=== PATIENT | male | born 1975 | race Caucasian/White ===

== ENCOUNTER 2023-01-10 09:33 | Inpatient (IN) | payer OTHER ==
[2023-01-10] VITALS (7 sets, daily range): BP systolic 104–132; BP diastolic 69–100
[~2023-01-10] VITALS: Ht 162.6 cm; Wt 86.6 kg
--- NOTE | 2023-01-10 09:58 | NUR ---
MD HERNANDEZ AT BEDSIDE FOR EVALUATION
--- NOTE | 2023-01-10 10:05 | NUR ---
47YO MALE PT C/O PENILE PAIN , BLEEDING AND POSSIBLE FX xTODAY. REPORTS HITTING PENIS AGAINST OUTER LABIA DURING SEXUAL INTERCOURSE X8AM. STATES HEARING A "POP/CRACK" FOLLOWED BY BLEEDING. PRESENTS WITH PENILE SWELLING , -LOSS OF SENSATION OR NUMBING. NO ACTIVE BLEEDING AT THIS TIME. DENIES TAKING MEDICATION OR URINARY RETENTION. PT AAOX4, AMB W/ STEADY GAIT. HOB POSITIONED PER COMFORT. HX: DENIES NKA
--- NOTE | 2023-01-10 10:23 | NUR ---
pt swabbed for covid(slava). walked and handed to lab
[2023-01-10 10:29] LABS: BASOPHILS % (AUTO) 0.3 % (0.0-2.0); EOSINOPHILS # (AUTO) 0.1 K/uL (0-0.4); HEMATOCRIT 41.2 % (36-52); LYMPHOCYTES # (AUTO) 1.3 K/uL (2.0-11.5); LYMPHOCYTES % (AUTO) 13.3 % (20.5-51.1); MEAN CORPUSCULAR HEMOGLOBIN 32 pg (27-31); MEAN CORPUSCULAR HGB CONC 34 g/dL (33-37); MEAN CORPUSCULAR VOLUME 93.2 fL (80-94); MONOCYTES # (AUTO) 0.4 K/uL (0.8-1.0); MONOCYTES % (AUTO) 4.6 % (1.7-9.3); NEUTROPHILS # (AUTO) 7.8 K/uL (1.8-7.7); NEUTROPHILS % (AUTO) 80.8 % (42.2-75.2); PLATELET COUNT (AUTO) 201 K/uL (140-450); RED BLOOD CELL COUNT(AUTO) 4.42 MIL/uL (4.20-6.10); RED CELL DISTRIBUTION WIDTH 12.7 % (11.6-13.7); WHITE BLOOD COUNT (AUTO) 9.7 K/uL (4.8-10.8)
[2023-01-10] MEDS ORDERED: MORPHINE SULFATE 4 MG/ML SYR IVP ONE ×2 (10:35→11:45)
[2023-01-10 10:37] LABS: ANION GAP 13.4 (8-16); CREATININE 0.9 mg/dL (0.6-1.3); POTASSIUM 4.4 mmol/L (3.5-5.1)
--- NOTE | 2023-01-10 11:44 | NUR ---
pt w/ new penile pain onset after attempting to void. MADE AWARE
[2023-01-10] MEDS ORDERED: LIDOCAINE OINTMENT 5% 35 GM TUBE TP ONE (11:51)
[2023-01-10] MEDS ORDERED: POTASSIUM CHLORIDE 10 MEQ TABER PO PRN (11:55)
[2023-01-10] MEDS ORDERED: ONDANSETRON 4 MG/2 ML VIAL IVP PRN ×2 (11:55→15:35)
[2023-01-10] MEDS ORDERED: MORPHINE SULFATE 4 MG/ML SYR IVP PRN (11:55)
[2023-01-10] MEDS ORDERED: MAG SULF 2000 MG/WATER PREMIX 50 ML IV PRN (11:55)
[2023-01-10] MEDS ORDERED: MAGNESIUM OXIDE 400 MG TAB PO PRN (11:55)
[2023-01-10] MEDS ORDERED: KCL 20 MEQ/WATER INJ PREMIX 200 ML IV PRN (11:55)
[2023-01-10] MEDS ORDERED: ACETAMINOPHEN 325 MG TAB PO PRN (11:55)
[2023-01-10] MEDS: NACL 0.9% 1,000 ML IV SCH (12:10)
--- NOTE | 2023-01-10 12:20 | NUR ---
Patient will be admitted to care of MD OAKLEY. Admited to M/S. Will go to room 111B. Belongings list completed. Report to DANE FRAUSTO.
--- NOTE | 2023-01-10 12:20 | NUR ---
ADMITTED FROM ER [place]IA [place]. A & O X4. SPEECH CLEAR. C/O PENILE PAIN 01/09. NO SOB, NOTED. SKIN WARM, DRY, AND INTACT. EXPLAINED DIAGNOSIS, PLAN OF CARE, PAIN MANAGEMENT TEACHING, USE OF CALL LIGHT/BED/TV/BATHROOM. VERBALIZED UNDERSTANDING. ADMISSION PROCESS INITIATED WITH INFORMATION GIVEN BY PT. -BRENDA.
--- NOTE | 2023-01-10 12:21 | NUR ---
The patient's care was reviewed and supervised by Rut Arias RN.
--- NOTE | 2023-01-10 12:56 | NUR ---
WENT TO OR. PT. AWAKE, ALERT, AND ORIENTED. PT. STAY AT THE ROOM TO WAIT PT..
[2023-01-10] MEDS ORDERED: MIDAZOLAM 2 MG/2 ML VIAL ONE (13:06)
[2023-01-10] MEDS ORDERED: HYDROmorphone PFS 2 MG/ML SYR ONE (13:06)
[2023-01-10] MEDS ORDERED: PROPOFOL 200 MG/20 ML VIAL IV ONE (13:08)
[2023-01-10] MEDS ORDERED: SUCCINYLCHOLINE CHLORIDE 200 MG/10 ML VIAL IVP ONE (13:08)
[2023-01-10] MEDS ORDERED: ceFAZolin 1,000 MG VIAL ONE ×2 (13:08)
[2023-01-10] MEDS ORDERED: LIDOCAINE MPF 1% 5 ML ONE (13:20)
[2023-01-10] MEDS ORDERED: LIDOCAINE 1% 500 MG/50 ML VIAL ONE (13:20)
[2023-01-10] MEDS ORDERED: ePHEDrine 50 MG/ML VIAL ONE (13:52)
[2023-01-10] MEDS ORDERED: METOCLOPRAMIDE 10 MG/2 ML INJ VIAL ONE (13:56)
[2023-01-10] MEDS ORDERED: ONDANSETRON 4 MG/2 ML VIAL ONE (13:56)
[2023-01-10] MEDS ORDERED: SUGAMMADEX SODIUM 200 MG/2 ML VIAL IV ONE (14:45)
[2023-01-10] MEDS ORDERED: NEOMYCIN/POLYMYXIN/BACITRACIN OIN 15 GM TUBE TP ONE (14:59)
[2023-01-10] MEDS ORDERED: HYDROmorphone 1 MG/ML AMP IVP PRN (15:35)
[2023-01-10] MEDS ORDERED: MEPERIDINE 25 MG/ML SYR IVP PRN (15:35)
[2023-01-10] MEDS ORDERED: LACTATED RINGERS 1,000 ML IV SCH (15:35)
--- NOTE | 2023-01-10 15:45 | NUR ---
[place]. NO ACUTE DISTRESS NOTED. KEEP COMFORTABLE ON BED. EXPLAINED POST-OP CARE AND PAIN MANAGEMENT TEACHING TO PT. AND PT. -BRENDA. THEY VERBALIZED UNDERSTANDING.
[2023-01-10] MEDS: PIPERACILLIN/TAZOBACTAM 3.375 GM in DEXTROSE 5% 50 ML IV SCH (17:36)
[2023-01-10] MEDS: HYDROcodone/APAP 5/325 MG 1 TAB TAB PO PRN (17:47)
--- NOTE | 2023-01-10 19:24 | NUR ---
REPORT GIVEN TO EUGENE FOR CONTINUITY OF CARE. IVF INFUSING WELL. IN STABLE CONDITION.
--- NOTE | 2023-01-10 19:35 | NUR ---
RECEIVED PT FROM AM NURSE FOR CONTINUITY OF CARE.PT IS STABLE
[2023-01-11] MEDS: PIPERACILLIN/TAZOBACTAM 3.375 GM in DEXTROSE 5% 50 ML IV SCH ×4 (00:19→17:44)
[2023-01-11] MEDS: NACL 0.9% 1,000 ML IV SCH ×2 (00:29→12:14)
[2023-01-11] MEDS: HYDROcodone/APAP 5/325 MG 1 TAB TAB PO PRN ×4 (00:44→21:02)
--- NOTE | 2023-01-11 01:00 | NUR ---
PATIENT ASLEEP,NO S/SX OF DISTRESS NOTED
[2023-01-11 04:00] VITALS: BP 108/61
[2023-01-11 06:20] LABS: BASOPHILS % (AUTO) 0.3 % (0.0-2.0); EOSINOPHILS # (AUTO) 0.1 K/uL (0-0.4); EOSINOPHILS % (AUTO) 1.4 % (0.0-4.0); HEMATOCRIT 36.9 % (36-52); HEMOGLOBIN 12.3 g/dL (12.0-18.0); LYMPHOCYTES # (AUTO) 1.3 K/uL (2.0-11.5); LYMPHOCYTES % (AUTO) 19.7 % (20.5-51.1); MEAN CORPUSCULAR HEMOGLOBIN 32 pg (27-31); MEAN CORPUSCULAR HGB CONC 33 g/dL (33-37); MEAN CORPUSCULAR VOLUME 94.2 fL (80-94); MONOCYTES # (AUTO) 0.5 K/uL (0.8-1.0); NEUTROPHILS # (AUTO) 4.8 K/uL (1.8-7.7); NEUTROPHILS % (AUTO) 71.6 % (42.2-75.2); PLATELET COUNT (AUTO) 160 K/uL (140-450); RED BLOOD CELL COUNT(AUTO) 3.91 MIL/uL (4.20-6.10); RED CELL DISTRIBUTION WIDTH 12.8 % (11.6-13.7); WHITE BLOOD COUNT (AUTO) 6.8 K/uL (4.8-10.8)
[2023-01-11 07:12] LABS: ALBUMIN 3.3 g/dL (3.4-5.0); ANION GAP 9.2 (8-16); CARBON DIOXIDE 27.9 mmol/L (21-32); CREATININE 0.8 mg/dL (0.6-1.3); POTASSIUM 4.1 mmol/L (3.5-5.1); TOTAL BILIRUBIN 1.2 mg/dL (0.0-1.0)
[2023-01-11 08:00] VITALS: BP 110/69
[2023-01-11 15:57] VITALS: BP 108/67
--- NOTE | 2023-01-11 17:22 | NUR ---
DR KNOWLES CALLED REQUESTING TO ADD PT TO HIS UROLOGY LIST. CALLED MATT JUNIOR AND UNAWARE OF HOW TO DO THIS, SAID TO CALL PBX. CALLED PBX AND THEY ARE UNAWARE OF HOW TO ADD PT TO UROLOGY LIST. CALLED MATT JUNIOR BACK AND STATED SHE WILL LET NIGHT MATT JUNIOR KNOW
--- NOTE | 2023-01-11 18:33 | NUR ---
PATIENT RESTING IN BED, EATING DINNER, RESPIRATIONS EVEN AND UL ON RA. AT BEDSIDE. SURGICAL DRESSING REMOVED BY DR. KNOWLES DURING SHIFT, NEW DRESSING PLACED, CDI. CEJA CATH DRAINING CLEAR YELLOW URINE VIA GRAVITY. ALL NEEDS MET. SAFETY MEASURES IN PLACE, CALL LIGHT IN REACH. WILL CONT TO MONITOR AND ENDORSE TO PM NURSE.
--- NOTE | 2023-01-11 19:16 | NUR ---
RECEIVED REPORT FROM DAY SHIFT NURSE MICHAEL FOR CONTINUITY OF CARE. PT AWAKE SITTING IN BED WITH AT BEDSIDE. RESPIRATIONS EVEN AND UNLABORED ON RA. CEJA CATHETER DRAINING TO GRAVITY. SURGICAL DRESSING DONE BY DR KNOWLES IN AM. INITIAL ASSESSMENT DONE. POC DISCUSSED WITH PT AND YU PHILLIPS. CALL LIGHT WITHIN REACH. SAFETY PRECAUTIONS IN PLACE.
[2023-01-11 20:00] VITALS: BP 116/76
--- NOTE | 2023-01-11 21:02 | NUR ---
PT COMPLAINED OF PAIN 6/10. V/S WITHIN NORMAL LIMIT. PRN PAIN MED ADMINISTERED.
[2023-01-12] MEDS: PIPERACILLIN/TAZOBACTAM 3.375 GM in DEXTROSE 5% 50 ML IV SCH ×4 (00:14→17:05)
[2023-01-12] MEDS: NACL 0.9% 1,000 ML IV SCH ×2 (01:37→13:56)
[2023-01-12 04:00] VITALS: BP 112/64
--- NOTE | 2023-01-12 04:05 | NUR ---
V/S TAKEN, WITHIN NORMAL LIMITS. DRAINED 2200CC URINE FROM FC. NO COMPLAINTS OF PAIN. NO DISTRESS NOTED. PT WENT BACK TO SLEEP.
[2023-01-12 06:04] LABS: BASOPHILS % (AUTO) 0.2 % (0.0-2.0); EOSINOPHILS # (AUTO) 0.2 K/uL (0-0.4); EOSINOPHILS % (AUTO) 2.5 % (0.0-4.0); HEMATOCRIT 39.5 % (36-52); HEMOGLOBIN 13.2 g/dL (12.0-18.0); LYMPHOCYTES # (AUTO) 1.8 K/uL (2.0-11.5); LYMPHOCYTES % (AUTO) 27.5 % (20.5-51.1); MEAN CORPUSCULAR HEMOGLOBIN 32 pg (27-31); MEAN CORPUSCULAR HGB CONC 33 g/dL (33-37); MEAN CORPUSCULAR VOLUME 94.3 fL (80-94); MONOCYTES # (AUTO) 0.4 K/uL (0.8-1.0); MONOCYTES % (AUTO) 6.2 % (1.7-9.3); NEUTROPHILS # (AUTO) 4.3 K/uL (1.8-7.7); NEUTROPHILS % (AUTO) 63.6 % (42.2-75.2); PLATELET COUNT (AUTO) 185 K/uL (140-450); RED BLOOD CELL COUNT(AUTO) 4.19 MIL/uL (4.20-6.10); RED CELL DISTRIBUTION WIDTH 12.8 % (11.6-13.7); WHITE BLOOD COUNT (AUTO) 6.7 K/uL (4.8-10.8)
[2023-01-12 06:31] LABS: ALBUMIN 3.6 g/dL (3.4-5.0); ANION GAP 9.7 (8-16); CARBON DIOXIDE 28.3 mmol/L (21-32); CREATININE 0.8 mg/dL (0.6-1.3); TOTAL BILIRUBIN 0.9 mg/dL (0.0-1.0)
--- NOTE | 2023-01-12 07:12 | NUR ---
GAVE BEDSIDE REPORT TO DAY SHIFT NURSE JETT MOROCHO FOR CONTINUITY OF CARE. ALL NEEDS MET THROUGHOUT SHIFT. PT IS STABLE.
--- NOTE | 2023-01-12 07:15 | NUR ---
RECEIVED REPORT FROM NIGHT NURSE FOR CONTINUITY OF CARE. INITIAL ASSESSMENT DONE. IVF INFUSING WELL. CALL LIGHT KEPT WITHIN REACH. WILL CONTINUE TO MONITOR.
[2023-01-12 08:00] VITALS: BP 118/79
--- NOTE | 2023-01-12 08:59 | NUR ---
PATIENT HAS BEEN SCREENED AND CATEGORIZED LOW NUTRITION RISK. PATIENT WILL BE SEEN WITHIN 7 DAYS OF ADMISSION. 01/17/[address]VIEW[address] BY TERRENCE STONE RD
[2023-01-12] MEDS: HYDROcodone/APAP 5/325 MG 1 TAB TAB PO PRN (09:10)
--- NOTE | 2023-01-12 09:10 | NUR ---
PT COMPLAINT OF PENILE PAIN 05/09. PRN NORCO PO WAS GIVEN. TOLERATING WELL.
--- NOTE | 2023-01-12 15:26 | NUR ---
DC PLANNING ASSESSMENT COMPLETE SEE ASSESSMENT FOR DETAILS PER PT, DC PLAN IS FOR PT TO RETURN HOME WITH PROVIDING TRANSPORTATION ONCE CLEARED FOR DC. Addendum: 01/12/23 at 1527 by Nikki BRISENO Amended: Links added.
[2023-01-12 16:00] VITALS: BP 123/85
--- NOTE | 2023-01-12 19:20 | NUR ---
BEDSIDE REPORT GIVEN TO NIGHT NURSE CHRIS FOR CONTINUITY OF CARE. REMAINS STABLE.
--- NOTE | 2023-01-12 19:21 | NUR ---
RECEIVED REPORT FROM DAY SHIFT NURSE BAILEE FOR CONTINUITY OF CARE. PT AWAKE IN BED. RESPIRATIONS EVEN AND UNLABORED ON RA. INITIAL ASSESSMENT DONE. POC DISCUSSED WITH PT AND RN EUGENE. CALL LIGHT WITHIN REACH. SAFETY PRECAUTIONS IN PLACE.
[2023-01-12 20:00] VITALS: BP 122/81
--- NOTE | 2023-01-12 20:14 | NUR ---
V/S TAKEN, STABLE. PT STATED HE STILL WAS IN PAIN BUT TOLERABLE, NO NEED FOR PAIN MED.
--- NOTE | 2023-01-13 | NUR ---
Patient's Plan of Care was discussed and reviewed with JETT VILLEDA
[2023-01-13] MEDS: PIPERACILLIN/TAZOBACTAM 3.375 GM in DEXTROSE 5% 50 ML IV SCH ×3 (00:35→11:53)
[2023-01-13] MEDS: NACL 0.9% 1,000 ML IV SCH (02:25)
[2023-01-13 04:00] VITALS: BP 120/72
--- NOTE | 2023-01-13 04:09 | NUR ---
V/S TAKEN, STABLE. DRAINED 1550CC OF CLEAR YELLOW URINE FROM FC. PT NO COMPLAINTS OF PAIN. NO DISTRESS NOTED. SAFETY PRECAUTIONS IN PLACE.
[2023-01-13 07:03] LABS: BASOPHILS % (AUTO) 0.5 % (0.0-2.0); EOSINOPHILS # (AUTO) 0.2 K/uL (0-0.4); EOSINOPHILS % (AUTO) 3.5 % (0.0-4.0); HEMATOCRIT 41.3 % (36-52); LYMPHOCYTES # (AUTO) 1.7 K/uL (2.0-11.5); LYMPHOCYTES % (AUTO) 25.8 % (20.5-51.1); MEAN CORPUSCULAR HEMOGLOBIN 32 pg (27-31); MEAN CORPUSCULAR HGB CONC 34 g/dL (33-37); MEAN CORPUSCULAR VOLUME 93.3 fL (80-94); MONOCYTES # (AUTO) 0.4 K/uL (0.8-1.0); MONOCYTES % (AUTO) 5.9 % (1.7-9.3); NEUTROPHILS # (AUTO) 4.2 K/uL (1.8-7.7); NEUTROPHILS % (AUTO) 64.3 % (42.2-75.2); PLATELET COUNT (AUTO) 205 K/uL (140-450); RED BLOOD CELL COUNT(AUTO) 4.43 MIL/uL (4.20-6.10); RED CELL DISTRIBUTION WIDTH 12.5 % (11.6-13.7); WHITE BLOOD COUNT (AUTO) 6.5 K/uL (4.8-10.8)
--- NOTE | 2023-01-13 07:06 | NUR ---
ASSUMED CONTINUITY OF CARE. INITIAL ASSESSMENT DONE. KEEP COMFORTABLE ON BED. EXPLAINED DIAGNOSIS, PLAN OF CARE, PAIN MANAGEMENT TEACHING, USE OF CALL LIGHT/BED/TV/BATHROOM. VERBALIZED UNDERSTANDING. CALL LIGHT WITHIN REACH.
--- NOTE | 2023-01-13 07:06 | NUR ---
ENDORSED PT TO DAY SHIFT NURSE DANE FOR CONTINUITY OF CARE. ALL NEEDS MET THROUGHOUT SHIFT. PT IN STABLE CONDITION.
[2023-01-13 07:22] LABS: ALBUMIN 3.7 g/dL (3.4-5.0); ANION GAP 12.8 (8-16); CARBON DIOXIDE 27.3 mmol/L (21-32); CREATININE 0.8 mg/dL (0.6-1.3); MAGNESIUM 2.1 mg/dL (1.8-2.4); POTASSIUM 4.1 mmol/L (3.5-5.1); TOTAL BILIRUBIN 0.9 mg/dL (0.0-1.0)
[2023-01-13 08:00] VITALS: BP 117/70
--- NOTE | 2023-01-13 10:00 | NUR ---
DR. HORTON WAS AT THE NURSE STATION AT THIS TIME AND SAID THAT PT. WILL KEEP CEJA CATHETER DURING D/C AND ALREADY EXPLAINED TO PT. ABOUT FOLLOW UP WITH MD IN 2 WEEKS TO REMOVE CEJA CATHETER.
[2023-01-13] MEDS ORDERED: ACET-9525 PO (10:02)
[2023-01-13] MEDS ORDERED: ACET-1182 PO (10:02)
[2023-01-13] MEDS: HYDROcodone/APAP 5/325 MG 1 TAB TAB PO PRN (11:00)
--- NOTE | 2023-01-13 12:40 | NUR ---
EXPLAINED TO PT. AND PT. -BRENDA ABOUT MD D/C ORDER, MD FOLOW UP TO REMOVE CEJA CATHETER, INCISION CARE, CEJA CATHETER CARE, PAIN MANAGEMENT TEACHING, MD D/C PRESCRIPTION. PT. AND PT. -BRENDA VERBALIZED UNDERSTANDING.
--- NOTE | 2023-01-13 13:45 | NUR ---
D/C HOME VIA WHEELCHAIR. IN STABLE CONDITION. INFORMED CHARGE NURSE MAKENNA YBARRA.
--- NOTE | 2023-01-14 08:29 | NUR ---
Wound consult not done, pt. discharged.
== END 2023-01-13 13:45 | disposition home or self-care (01) | DRG 483 ==
LOC: MED 09:33 → MTU 11:58
PROVIDERS: ADMIT Hospitalist; ATTEND Hospitalist
PROC: 0VQS0ZZ Repair Penis, Open Approach (ICD-10-PCS; 2023-01-10)
PROC: 0TQD8ZZ Repair Urethra, Via Natural or Artificial Opening Endoscopic (ICD-10-PCS; principal; 2023-01-10 13:00)
DX: S39.840A Fracture of corpus cavernosum penis, initial encounter (principal); R64 Cachexia; E88.09 Other disorders of plasma-protein metabolism, not elsewhere classified; S37.39XA Other injury of urethra, initial encounter; Z20.822 Contact with and (suspected) exposure to COVID-19; X58.XXXA Exposure to other specified factors, initial encounter; Y93.89 Activity, other specified; Y92.89 Other specified places as the place of occurrence of the external cause; Y99.8 Other external cause status; Z68.32 Body mass index [BMI] 32.0-32.9, adult
CPT/HCPCS: 36415; 71045; 80048; 80053; 83735; 83880; 85025; 87081; 96374; 96376; 99285; C1758; C1769; J0330; J0690; J1170; J2001; J2250; J2270; J2405; J2543; J2704; J2765; J7060

== ENCOUNTER 2023-01-20 18:22 | Emergency (ER) | payer OTHER ==
[~2023-01-20] VITALS: Ht 170.2 cm; Wt 83.5 kg
[~2023-01-20 18:22] MED LIST: ACET-1182 PO; ACET-9525 PO
[2023-01-20 18:59] VITALS: BP 116/81
[2023-01-20] MEDS ORDERED: HYDROcodone/APAP 5/325 MG 1 TAB TAB PO ONE (19:55)
--- NOTE | 2023-01-20 21:00 | NUR ---
Patient resting in bed, A/Ox4, chest rise and fall symmetrical, no s/s of discomfort.
[2023-01-20 21:10] LABS: BILIRUBIN,URINE NEGATIVE (NEGATIVE); BLOOD, URINE 3+ (NEGATIVE); COLOR,URINE YELLOW (YELLOW); LEUKOCYTE ESTERASE ,URINE TRACE (NEGATIVE); NITRITE, URINE POSITIVE (NEGATIVE); PH,URINE 5.5 (5.0-9.0); UGLUCOSE NEGATIVE (NEGATIVE)
[2023-01-20 21:43] LABS: APPEARANCE,URINE HAZY (CLEAR)
[2023-01-20 21:53] LABS: RBC,URINE TOO NUMEROUS TO COUN /HPF (0-5); WBC,URINE 20-60 /HPF (0-5)
[2023-01-20] MEDS ORDERED: CIPR500T4 PO ×2 (22:22→22:24)
[2023-01-20] MEDS ORDERED: HYDR-5080 PO (22:24)
[2023-01-20 22:43] VITALS: BP 114/71
--- NOTE | 2023-01-20 22:43 | NUR ---
Patient discharged with v/s stable. Written and verbal after care instructions given and explained. Patient verbalized understanding. Ambulatory with steady gait. All questions addressed prior to discharge. Advised to follow up with PMD.
== END 2023-01-20 22:43 | disposition home or self-care (01) ==
LOC: MED 18:22
DX: T83.511A Infection and inflammatory reaction due to indwelling urethral catheter, initial encounter (principal); N39.0 Urinary tract infection, site not specified; Z87.828 Personal history of other (healed) physical injury and trauma; Z79.2 Long term (current) use of antibiotics; Z79.891 Long term (current) use of opiate analgesic; Z79.899 Other long term (current) drug therapy
CPT/HCPCS: 81001; 87086; 99284